=== PATIENT | male | born 1940 | race African-American/Black ===

== ENCOUNTER 2019-10-07 14:32 | Emergency (ER) | payer MEDICARE, MEDICAID ==
[~2019-10-07] VITALS: Ht 168.9 cm; Wt 77.1 kg
[~2019-10-07 14:32] MED LIST: LEVAQUIN500 MG ORAL; MOM30 ML ORAL; PROSCAR5 MG ORAL; TAMSULOSIN HCL0.4 MG ORAL; TRAMADOL HCL50 MG ORAL
--- NOTE | 2019-10-07 14:40 | NUR ---
ED Nurse Note: Patient was bit by spider at home, wanted MD to look at site of bite. Patient AxO x 4, no s/s of acute distress.
[2019-10-07] MEDS ORDERED: CEPHALEXIN500 MG ORAL (14:46)
[2019-10-07 15:02] VITALS: BP 157/76
--- NOTE | 2019-10-07 15:10 | Emergency Room Report ---
History of Present Illness General Chief Complaint: Skin Rash/Abscess Source: Patient, Medical Record Present Illness HPI Patient presents with complaints of small lesion to the left upper arm Reports that he saw a small insect in that area and brushed it off and soon afterwards noticed Small erythematous lesion denies any chest pain denies any fevers Denies any muscle cramping denies any IV drug abuse denies any foreign body contact Allergies: Coded Allergies: CODEINE (Verified Allergy, Intermediate, 04/09/15) COVID-19 Screening Contact w/high risk pt: No Recent Travel to affected area: No Experienced COVID-19 symptoms?: No Patient History Past Medical History: see triage record Reviewed Nursing Documentation: PMH: Agreed; PSxH: Agreed Nursing Documentation-PMH Past Medical History: No Stated History Hx Cardiac Problems: No Hx Hypertension: No Hx Pacemaker: No Hx COPD: No Hx Diabetes: No Hx Cancer: No Hx Gastrointestinal Problems: No Hx Dialysis: No History Of Psychiatric Problem: No Hx Neurological Problems: No Hx Cerebrovascular Accident: No Hx Seizures: No Review of Systems All Other Systems: negative except mentioned in HPI Physical Exam Vital Signs Date Time Temp Pulse Resp B/P (MAP) Pulse Ox O2 Delivery O2 Flow Rate FiO2 10/07/19 14:38 97.9 63 18 157/76 (103) 96 Room Air Sp02 EP Interpretation: reviewed, normal General Appearance: well appearing, no apparent distress Head: normocephalic, atraumatic Eyes: bilateral eye PERRL, bilateral eye EOMI ENT: hearing grossly normal, normal pharynx, TMs + canals normal, uvula midline Neck: full range of motion, supple, no meningismus, no bony tend Respiratory: lungs clear, normal breath sounds, no rhonchi, no respiratory distress, no retraction, no accessory muscle use Cardiovascular #1: normal peripheral pulses, regular rate, rhythm, no edema, no gallop, no JVD, no murmur Gastrointestinal: normal bowel sounds, non tender, soft, no mass, no organomegaly, non-distended, no guarding, no hernia, no pulsatile mass, no rebound Genitourinary: no CVA tenderness Musculoskeletal: normal inspection Neurologic: motor strength/tone normal, manager net III-XII nml as tested, oriented x3 , sensory intact, responsive Psychiatric: normal inspection, mood/affect normal Skin: other - Small 1 cm x 1 cm erythematous lesion left upper arm on the palmar aspect no obvious fluctuance there is no streaking of erythema Lymphatic: normal inspection, no adenopathy Medical Decision Making Diagnostic Impression: Primary Impression: insect bite Additional Impression: cellulitis ER Course The area in question appears to be consistent with likely insect bite secondary cellulitis there is no obvious fluctuance no obvious abscess formation at this time patient will have trial on oral antibiotics close outpatient follow-up and return with any changes or concerns Last Vital Signs Date Time Temp Pulse Resp B/P (MAP) Pulse Ox O2 Delivery O2 Flow Rate FiO2 10/07/19 14:38 97.9 63 18 157/76 (103) 96 Room Air Status: improved Disposition: HOME, SELF-CARE Condition: Improved Scripts Cephalexin* (KEFLEX*) 500 Mg Capsule 500 MG ORAL EVERY 6 HOURS for 7 Days, CAP Prov: Jessica Palma DO 10/07/19 Referrals: [facility] Patient Instructions: Cellulitis, [id number], Insect Bite, [id number] Additional Instructions: Patient is provided with the discharge instructions notified to follow up with primary doctor in the next 2-3 days otherwise return to the er with any worsening symptoms. Please note that this report is being documented using DRAGON technology. This can lead to erroneous entry secondary to incorrect interpretation by the dictating instrument. Jessica Palma DO Oct 07, 2019 15:10
[2019-10-07 15:14] VITALS: BP 157/76
--- NOTE | 2019-10-07 15:14 | NUR ---
ER DISCHARGE NOTE: Patient is cleared to be discharged per Dr. Palma, pt is aox4, on room air, with stable vital signs. pt was given dc and prescription instructions, pt was able to verbalize understanding, pt id band removed. pt is able to ambulate with steady gait. pt took all belongings.
== END 2019-10-07 15:14 | disposition home or self-care (01) ==
LOC: EMR 15:00
DX: S40.862A Insect bite (nonvenomous) of left upper arm, initial encounter (principal); L03.114 Cellulitis of left upper limb; W57.XXXA Bitten or stung by nonvenomous insect and other nonvenomous arthropods, initial encounter; Y92.9 Unspecified place or not applicable; Z88.6 Allergy status to analgesic agent
CPT/HCPCS: 99282